=== PATIENT | female | born 1945 | race Caucasian/White ===

== ENCOUNTER → 2017-02-27 | Outpatient (CLI) | payer MEDICARE, OTHER ==
[~2017-02-27] MED LIST: ASCO500C14; ATEN50TA; CALC-80; GADOBUTROL 7.5 MMOL/7.5 ML (GADAVIST) VIAL IV ONE; MULT-608; OMEP20CA6
--- NOTE | 2017-02-28 18:50 | Diagnostic Imaging Report ---
TECHNIQUE: Utilizing 1.5 Sabi magnet, patient was placed in a prone position with 8-channel dual breast coil utilized. Axial STIR precontrasted image and axial T1 fat-sat postcontrast high-resolution images obtained. Sagittal T2-weighted images precontrast, bilaterally, as well. Sagittal vibrant temporal images were obtained pre and post contrast with bolus technique utilized of gadolinium. Images are postcontrast immediately and subsequently for 7 minutes. Pre and post contrasted images are then evaluated with Filement for evaluation of possible angiogenesis. COMPARISON: 02/14/2016 and 08/13/2015. INDICATION: Personal history of breast cancer. FINDINGS: Right mastectomy is again identified. Moderate glandular tissue is seen within the left breast. Mild background enhancement within the left breast. No significant axillary or internal mammary adenopathy. Multiple scattered T2 hyperintensities are seen throughout the liver, consistent with hepatic cysts. These appear similar to the prior examination. Otherwise, visualized portions of the upper abdomen are unremarkable. 2 mm punctate focus of enhancement within the left nipple is again identified. This appears stable from prior examination though slightly less prominent when compared to the prior study from July 2015. No additional suspicious mass or non-mass enhancement within the left breast. No suspicious enhancement associated with the right mastectomy. IMPRESSION: Stable examination without evidence of malignancy. Punctate focus of enhancement within the left nipple is again identified, appearing somewhat less prominent when compared to 2015. Therefore, these findings should be considered benign. BI-RADS category 2: Benign findings. FOLLOWUP: No mammograms of the left breast are available since July 2015. If mammograms have not been performed of the left breast at an outside facility within the past year, then mammograms of the left breast should be obtained. Dictated by: Dictated on workstation # [id number]
== END ==
LOC: RAD 10:56
PROVIDERS: ATTEND Internal Medicine Hematology & Oncology
DX: C50.911 Malignant neoplasm of unspecified site of right female breast (principal)
CPT/HCPCS: 77059